=== PATIENT | male | born 1985 | race Caucasian/White ===

== ENCOUNTER 2017-07-26 17:42 | Emergency (ER) | END 2017-07-26 18:40 | disposition home or self-care (01) ==

== ENCOUNTER 2018-05-24 16:25 | Emergency (ER) | payer MEDICAID, OTHER ==
[~2018-05-24] VITALS: Ht 162.6 cm; Wt 76.0 kg
[~2018-05-24 16:25] MED LIST: CEPH-443 PO; HYDR-843 PO; TRIA15CR55 TOP
[2018-05-24 16:57] VITALS: BP 118/79; PULSE 68; RESP 16; Ht 162.6 cm; Wt 76.0 kg
[2018-05-24] MEDS ORDERED: FLUORESCEIN STRIP LEFT EYE ONE (18:30)
[2018-05-24] MEDS ORDERED: TETRACAINE 0.5% 4 ML OPH LEFT EYE ONE (18:30)
[2018-05-24] MEDS ORDERED: OFLO5DRO46 LEFT EYE (18:50)
--- NOTE | 2018-05-24 19:26 | ERD ---
ER Documentation Chief Complaint Chief Complaint LEFT EYE FOREIGN BODY AT WORK HPI 32-year-old male presenting with pain to left eye. Patient feels he got a piece of trash in his eye. Patient does not wear contacts or glasses. Denies visual deficit. Denies medical problems. NKDA. Surgical history denies. Social history denies ROS All systems reviewed and are negative except as per history of present illness. Medications Home Meds Active Scripts Ofloxacin* (Ocuflox*) 0.3%-5 Ml Ophth Drops, 1 DROP LEFT EYE QID, #1 BOTTLE Prov:ALLEN TEMPLETON PA-C 05/24/18 Cephalexin* (Keflex*) 500 Mg Capsule, 500 MG PO QID for 10 Days, CAP Prov:KELECHI VALENZUELA NP 07/26/17 Hydroxyzine Hcl* (Hydroxyzine Hcl*) 25 Mg Tablet, 25 MG PO Q8H PRN for ITCHING, #30 TAB Prov:KELECHI VALENZUELA NP 07/26/17 Triamcinolone Acetonide (Triamcinolone Acetonide) 0.1% - 15 Gm Cream.gm., 1 APPLIC TOP BID, #1 TUB Prov:KELECHI VALENZUELA NP 07/26/17 Allergies Allergies: Coded Allergies: No Known Allergy (Unverified , 07/26/17) PMhx/Soc Medical and Surgical Hx: pt denies Medical Hx, pt denies Surgical Hx FmHx Family History: No diabetes, No coronary disease, No other Physical Exam Vitals Vital Signs Date Temp Pulse Resp B/P (MAP) Pulse Ox O2 O2 Flow FiO2 Time Delivery Rate 05/24/18 97.9 68 16 118/79 98 16:57 (92) Physical Exam GENERAL: The patient is well-appearing, well-nourished, in no acute distress HEENT: Injection noted to the left sclera. No obvious deformity. No foreign body seen. CHEST: Clear to auscultation bilaterally. There are no rales, wheezes or rhonchi. HEART: Regular rate and rhythm. No murmurs, clicks, rubs or gallops. No S3 or S4. Results 24 hrs Current Medications Medications Dose Sig/Angel Start Time Status Last (Trade) Ordered Route PRN Stop Time Admin Dose Reason Admin Tetracaine 1 drop ONCE ONCE 1/22/19 DC HCl LEFT EYE 18:30 (Tetracaine 05/24/18 18:31 0.5% Steri-Unit Katlyn) Fluorescein 1 strip ONCE ONCE 05/24/18 DC Sodium LEFT EYE 18:30 ([id number] 05/24/18 18:31 p) Procedures/MDM ER course: Tetracaine and fluorescein stain applied to the left eye. No foreign body seen. Glenn lens applied and ocular flush done in ED. Patient tolerated procedure well. MDM: 32-year-old male presenting with irritation to the left eyeball. Patient may have foreign body however nothing seen on exam. Patient likely has small corneal abrasion will be discharged with supportive medications. I have low suspicion for ocular deficit. Patient will be discharged with supportive medications. Patient is told symptoms change or worsen to immediately return to the ER. All questions answered discharge Departure Diagnosis: Primary Impression: Pain in eye Condition: Stable Patient Instructions: Corneal Abrasion Referrals: [facility] Hours: Mon - Fri 9:00 AM - 5:00 PM Additional Instructions: FOLLOW UP WITH YOUR PRIMARY CARE PHYSICIAN TOMORROW.Return to this facility if you are not improving as expected. ALLEN TEMPLETON PA-C May 24, 2018 19:26
== END 2018-05-24 19:05 | disposition home or self-care (01) ==
LOC: FTE 16:25
DX: H57.12 Ocular pain, left eye (principal)
CPT/HCPCS: Z7502; Z7610; 99283